=== PATIENT | male | born 1960 | race Caucasian/White ===

== ENCOUNTER 2016-11-13 19:36 | Inpatient (IN) | payer MEDICARE, OTHER ==
--- NOTE | ~2016-11-13 | EKG ---
PATIENT: BRITTNEY VU UNIT #: [id number] Ventricular Rate: 75 BPM Atrial Rate: 75 BPM P-R Interval: 178 ms QRS Duration: 94 ms Q-T Interval: 410 ms QTC Calculation(Bezet): 457 ms P [place]: 35 degrees Calculated R [place]: 17 degrees Calculated T [place]: -4 degrees Diagnosis Line: Normal sinus rhythm Diagnosis Line: Poor R wave progression questionable lead position Diagnosis Line: or body habitus Diagnosis Line: Borderline ECG Diagnosis Line: When compared with ECG of 08-FEB-2014 16:44, Diagnosis Line: Non-specific change in ST segment in Inferior Diagnosis Line: leads Diagnosis Line: Nonspecific T wave abnormality now evident in Diagnosis Line: Inferior leads Diagnosis Line: Confirmed by ALENA LOUIS MD ([id number]) on Diagnosis Line: 11/14/2016 9:14:12 PM INTERPRETING MD: JOSÉ MIGUEL
--- NOTE | ~2016-11-13 | CR72 ---
[facility] A Service of [facility] & [facility] RADIOLOGY TEXT RESULTS PATIENT: BRITTNEY VU LOCATION: [place] [address] : 56 UNIT #: [id number] AGE: [address]: Joe Munoz MD SEX: M ORDER DR: [id number] [facility] [address] [facility]. [place], [place] [address] [id number] I MR#: [id number] Acc #: [id number] NAME: BRITTNEY VU : 1960 SEX: M STUDY DATE/TIME: 11/24/2016 5:56 UNIT: [facility] ROOM: [facility] STUDY DESCRIPTION: CR Chest Single View Portable Attending Physician: Joe Munoz M.D. Ordering Physician: Kenny Santos M.D. Primary Care Physician: Josh Centeno M.D. MEDICAL IMAGING REPORT This report is preliminary unless electronic signature is present EXAM Portable chest one-view, 11/24/2016 COMPARISON 11/23/2016 CLINICAL HISTORY Respiratory failure. Symptoms for 9 days. FINDINGS Persistent low lung volumes and vascular congestion and left basilar opacity due to possibly effusion and/or atelectasis or infiltrate, all unchanged since 11/23. Right arm PICC line remains in place. There is no pneumothorax and again there has been no substantial worsening or improvement since exam of 11/23. Dictated by... Umesh Prado M.D. THIS IS AN ELECTRONICALLY VERIFIED REPORT Umesh Prado M.D. at 11/24/2016 3:51 PM ZULEMA/neris TD: 11/24/2016 10:54 JOB #: [id number] MEDICAL IMAGING REPORT Page 1 of 1 COPY
--- NOTE | ~2016-11-13 | CT16 ---
[facility] A Service of [facility] RADIOLOGY TEXT RESULTS PATIENT: BRITTNEY VU LOCATION: CICCU3 CICCU3- : 56 UNIT #: [id number] AGE: [address]: Joe Munoz MD SEX: M ORDER DR: [id number] [facility] [address] [facility]. [place], [place] [address] [id number] I MR#: [id number] Acc #: [id number] NAME: BRITTNEY VU. : 1960 SEX: M STUDY DATE/TIME: 11/14/2016 2:12 UNIT: [facility] ROOM: 26434 STUDY DESCRIPTION: CT Angio Chest for PE Attending Physician: Joe Munoz M.D. Ordering Physician: Adrienne Oconnor M.D. Primary Care Physician: Josh Centeno M.D. MEDICAL IMAGING REPORT This report is preliminary unless electronic signature is present EXAM CT chest with pulmonary embolus protocol. INDICATION Shortness of air for 1 1/2 months with weakness. TECHNIQUE Patient was given 100 mL of Isovue-370. This CT exam was performed with one or more of the following radiation dose reduction techniques: automatic exposure control, adjustment of mA and/or kV according to patient size, and iterative reconstruction. COMPARISON There is no comparison. FINDINGS The patient is very large and images are very grainy. The study is essentially nondiagnostic. There is opacification of the pulmonary arteries and I do not see any large central emboli. Lungs are clear and the aorta is normal in size and there is no obvious dissection. IMPRESSION 1. This exam is severely limited by the patient's large size which causes the images to be very grainy. I can only rule out very large central emboli and none are visible on this study. Smaller more distal emboli cannot be excluded. 2. The lungs are clear. Dictated by... [facility] A Service of [facility] RADIOLOGY TEXT RESULTS PATIENT: BRITTNEY VU LOCATION: CICCU3 CICCU3- : 56 UNIT #: [id number] AGE: [address]: Joe Munoz MD SEX: M ORDER DR: Augustus Whiteside M.D. THIS IS AN ELECTRONICALLY VERIFIED REPORT Augustus Whiteside M.D. at 11/14/2016 1:21 PM MERYL/brien TD: 11/14/2016 10:24 JOB #: [id number] MEDICAL IMAGING REPORT Page 1 of 1 COPY
--- NOTE | ~2016-11-13 | CR7 ---
[facility] A Service of [facility] & [facility] RADIOLOGY TEXT RESULTS PATIENT: BRITTNEY VU LOCATION: [address] : 56 UNIT #: [id number] AGE: [address]: Joe Munoz MD SEX: M ORDER DR: [id number] [facility] [address] [facility]. [place], [place] [address] [id number] I MR#: [id number] Acc #: [id number] NAME: BRITTNEY VU : 1960 SEX: M STUDY DATE/TIME: 11/15/2016 13:14 UNIT: [facility] ROOM: [facility] STUDY DESCRIPTION: CR Abdomen Single AP View Attending Physician: Joe Munoz M.D. Ordering Physician: Joe Munoz M.D. Primary Care Physician: Josh Centeno M.D. MEDICAL IMAGING REPORT This report is preliminary unless electronic signature is present EXAM Portable abdomen. HISTORY History supplied is Dobbhoff tube placement. FINDINGS Tip of the flexible feeding tube is within the stomach. There is consolidation at the left lung base and left pleural fluid. Dictated by... Rudi Miller M.D. THIS IS AN ELECTRONICALLY VERIFIED REPORT Rudi Miller M.D. at 11/16/2016 7:14 AM BRITTANI/adriano TD: 11/15/2016 14:24 JOB #: [id number] MEDICAL IMAGING REPORT Page 1 of 1 COPY
--- NOTE | ~2016-11-13 | CR72 ---
[facility] A Service of [facility] & [facility] & [facility] RADIOLOGY TEXT RESULTS PATIENT: BRITTNEY VU LOCATION: [address] : [birth year] UNIT #: [id number] AGE: [address]: Joe Munoz MD SEX: M ORDER DR: [id number] [facility] [address] [facility]. [place], [place] [address] [id number] I MR#: [id number] Acc #: [id number] NAME: BRITTNEY VU : 1960 SEX: M STUDY DATE/TIME: 11/22/2016 5:28 UNIT: [facility] ROOM: [facility] STUDY DESCRIPTION: CR Chest Single View Portable Attending Physician: Joe Munoz M.D. Ordering Physician: Kenny Santos M.D. Primary Care Physician: Josh Centeno M.D. MEDICAL IMAGING REPORT This report is preliminary unless electronic signature is present EXAM Portable chest, 11/22. COMPARISON 11/21. HISTORY Intubated, shortness of breath, follow up infiltrates. FINDINGS AP view is obtained. ET tube is in good position above the timothy. Nasoenteric tube in the stomach and a right-sided PICC line in the SVC. Heart size is enlarged. There is an increase in pulmonary edema since the last study. Continues to be focal consolidation at the left base. CONCLUSION Slight increase in pulmonary edema, otherwise no change. Dictated by... Rudi Miller M.D. THIS IS AN ELECTRONICALLY VERIFIED REPORT Rudi Miller M.D. at 11/23/2016 3:21 PM BRITTANI/nathaniel TD: 11/22/2016 10:20 JOB #: [id number] MEDICAL IMAGING REPORT Page 1 of 1 COPY
--- NOTE | ~2016-11-13 | FU ---
[facility] Nutrition Therapy DATE: 11/23/16 Patient: BRITTNEY VU Physician: ANA MARIA Address: [address] [facility] Room/Bed: [address], Zip: [place] [address] Admit Date: 11/14/16 Date of : 56 Height: 6 Weight: 497 225.6 NUTRITION MONITORING/FOLLOW-UP: Reason: Nutrition follow up Anthropometrics: Wt 11/23: 225.6 kg Labs: Na+ 146 Gluc 173 BUN 66 Ca++ 8.0 Alb 2.7 Accuchecks 159-172 GFR 55 Meds: Solu-medrol, bumex, pepcid (IV), NaCl, versed, vitamin B12, novolog I&O's: 1574/5692, last BM 11/23 Skin: No changes noted Edema: Generalized- BUE/ BLE/ trunk Estimated Nutrition Needs: Diet: Clear liquid Assessment: Chart reviewed, events noted. Pt remains in ICU, and was extubated yesterday. Pt still has a DHT; however, there are orders to d/c enteral nutrition if the pt passes his CHAIRLIFT OPERATOR eval. CHAIRLIFT OPERATOR just completed the evaluation, and recommended regular consistency foods and thin liquids. Orders in chart to advance diet per CHAIRLIFT OPERATOR recommendations. RD spoke with the pt at bedside. Pt reports that he has a good appetite, but states that he will not be eating a lot because he is having diarrhea. RD discussed the importance of adequate, balanced nutrient intake. RD briefly discussed consuming soluble fiber-rich foods to help with diarrhea, as well as heart healthy and consistent carbohydrate basics. Pt voiced understanding; however, he was not interested in further diet education at this time. Dx: 1) Inadequate oral intake RT clinical condition AEB ventilator dependence, NPO status- NO LONGER RELEVANT Morbid obesity RT likely poor lifestyle choices AEB BMI 67- ACTIVE New Dx: Potential for inadequate oral intake RT recent extubation, GI irregularity AEB no oral intake yet d/t recent diet advancement, pt reports that intkae will be minimal d/t diarrhea. Intervention: 1. Heart healthy/ consistent carbohydrate diet 2. HH/CC diet education [facility] Nutrition Therapy DATE: 11/23/16 Patient: BRITTNEY VU Physician: ANA MARIA Address: [address] Room/Bed: [facility] [place] [address], Zip: [place] [address] Admit Date: 11/14/16 Date of : 56 Height: 6 Weight: 497 225.6 Monitoring, Evaluation and Goals: 1. Enteral nutrition- MET/ NO LONGER RELEVANT 2. Weight; promote gradual weight loss- IN PROGRESS 3. Skin; prevent breakdown/ promote healing- IN PROGRESS 4. Improve labs; glucose, BUN- (NOT MET) Creat, GFR- (IMPROVED) NEW GOALS (IN ADDITION TO ABOVE) 1. Oral intake; tolerate >50% of meals 2. Improve labs; glucose, Na+, BUN, GFR Recommendations: 1. Recommend diet advancement per CHAIRLIFT OPERATOR recommendations + heart healthy/ consistent carbohydrate restriction due to the pt's PMH and obesity. 2. Provide additional HH/CC diet education at follow up as appropriate. 3. Encourage the pt to consume a source of soluble fiber at each meal to help with diarrhea. 4. Consider adding an antidiarrheal to the pt's medication regimen if PO intake does not relieve symtpoms. Status: Pt is at mild-moderate nutritional risk. RD will follow hospital course per protocol. Respectfully, MIAN FOWLER RD, LD [employer] [facility] cc: client file
--- NOTE | ~2016-11-13 | CR72 ---
[facility] A Service of [facility] RADIOLOGY TEXT RESULTS PATIENT: BRITTNEY VU LOCATION: [address] : 56 UNIT #: [id number] AGE: [address]: Joe Munoz MD SEX: M ORDER DR: [id number] [facility] [address] [facility]. [place], [place] [address] [id number] I MR#: [id number] Acc #: [id number] NAME: BRITTNEY VU : 1960 SEX: M STUDY DATE/TIME: 11/15/2016 8:10 UNIT: [facility] ROOM: [facility] STUDY DESCRIPTION: CR Chest Single View Portable Attending Physician: Joe Munoz M.D. Ordering Physician: Ed Jackson Rubi M.D. Primary Care Physician: Josh Centeno M.D. MEDICAL IMAGING REPORT This report is preliminary unless electronic signature is present EXAM Portable chest radiograph. INDICATION Respiratory failure today. FINDINGS Comparison is made to prior exam from yesterday. Endotracheal tube terminates above the level of the timothy. There is a right side PICC line which extends into the superior vena cava. Cardiomegaly is present. There does appear to be significant vascular congestion. There is probably at least a trace right pleural effusion and there may also be a small left pleural effusion as well. Dense consolidation is noted at the left lung base which could reflect either atelectasis or infiltrate. No pneumothorax is seen. Dictated by... Sue Centeno M.D. THIS IS AN ELECTRONICALLY VERIFIED REPORT Sue Centeno M.D. at 11/15/2016 11:19 AM AFF/tmw TD: 11/15/2016 09:15 JOB #: [id number] MEDICAL IMAGING REPORT Page 1 of 1 COPY
--- NOTE | ~2016-11-13 | DS ---
Unit #: [id number] #: [id number] Patient: BRITTNEY VU [id number] [address] [address] [id number] I MR#: [id number] NAME: BRITTNEY VU ROOM: 578 Age: 56 Sex: M Admission Date: 11/14/2016 : 1960 Discharge Date: 11/28/2016 Attending Physician: Linda Ramirez M.D. Primary Care Physician: Josh Centeno M.D. DISCHARGE SUMMARY HOSPITAL COURSE Please see transfer of care summary from 11/24/2016 for hospital stay. Essentially, over the past 72 hours the patient was maintained on telemetry floor, requiring anywhere from 8-12 liters O2 via Oxymizer. Pulmonary services have stated that his antibiotics can be discontinued after tomorrow. Solu-Medrol has been weaned off. Secondary to increased O2 requirements as well as ongoing IV Bumex and/or increased level of care, [place] services have evaluated the patient. The patient will be transferred to [facility] facility later this afternoon for ongoing care. Overall the patient's prognosis is guarded secondary to associated comorbid conditions as detailed above. DISCHARGE MEDICATIONS 1. Duo-Neb aerosol solution q.8 h. with q.2 p.r.n. 2. Tylenol 650 mg p.o. q.4 h. p.r.n. 3. Lovenox 40 mg subcutaneous daily. 4. Bumex 1 mg IV q.12 h. 5. NovoLog medium dose sliding scale with insulin, Accu-Cheks morning and evening. 6. Pepcid 20 mg IV q.12 h. 7. Vitamin B12 1000 mcg p.o. daily. 8. Sodium chloride nebulized solution b.i.d. 9. Nafcillin q.6 h. until 11/28/2016. DISCHARGE CONDITION Stable. DISPOSITION [facility] for ongoing care. Dictated by... Joe Munoz M.D. BRE/gordon TD: 11/28/2016 15:25 JOB #: [id number] Unit #: [id number] #: [id number] Patient: BRITTNEY VU DISCHARGE SUMMARY Page 1 of 1 X Joe Munoz MD DISCHARGE SUMMARY
--- NOTE | ~2016-11-13 | CR72 ---
[facility] A Service of [facility] & [facility] RADIOLOGY TEXT RESULTS PATIENT: BRITTNEY VU LOCATION: [address] : 56 UNIT #: [id number] AGE: [address]: Joe Munoz MD SEX: M ORDER DR: [id number] [facility] [address] [facility]. [place], [place] [address] [id number] I MR#: [id number] Acc #: [id number] NAME: BRITTNEY VU : 1960 SEX: M STUDY DATE/TIME: 11/14/2016 UNIT: [facility] ROOM: [facility] STUDY DESCRIPTION: CR Chest Single View Portable Attending Physician: Joe Munoz M.D. Ordering Physician: Moncho Traore M.D. Primary Care Physician: Josh Centeno M.D. MEDICAL IMAGING REPORT This report is preliminary unless electronic signature is present EXAM Chest portable 11/14/2016 1045 hours HISTORY Respiratory failure, intubation today. COMPARISON 11/13/2016 FINDINGS Single portable supine chest film demonstrates a new endotracheal tube with tip 2 cm above the timothy. There is stable cardiomegaly. There is pulmonary venous distension with increasing parenchymal change in the perihilar and basilar regions since yesterday's chest x-ray. Some of the findings may be related to the supine positioning and morbid obesity. Developing edema, however, cannot be excluded. IMPRESSION 1. New endotracheal tube tip is 2-3 cm above the timothy. 2. Persistent cardiomegaly. There is pulmonary venous distension with increasing perihilar and basilar changes since 11/13/2016. Some of this vascular distension could be due to the supine positioning. However, developing edema or pneumonia cannot be excluded. Dictated by... Anjali Pena M.D. THIS IS AN ELECTRONICALLY VERIFIED REPORT Anjali Pena M.D. at 11/14/2016 2:33 PM JENNA/fallon TD: 11/14/2016 13:15 [facility] A Service of [facility] & [facility] RADIOLOGY TEXT RESULTS PATIENT: BRITTNEY VU LOCATION: [address] : 56 UNIT #: [id number] AGE: [address]: Joe Munoz MD SEX: M ORDER DR: JOB #: [id number] MEDICAL IMAGING REPORT Page 1 of 1 COPY
--- NOTE | ~2016-11-13 | CR71 ---
[facility] A Service of [facility] & [facility] RADIOLOGY TEXT RESULTS PATIENT: BRITTNEY VU LOCATION: [address]23 : 56 UNIT #: [id number] AGE: [address]: Joe Munoz MD SEX: M ORDER DR: [id number] [facility] [address] [facility]. [place], [place] [address] [id number] I MR#: [id number] Acc #: [id number] NAME: BRITTNEY VU : 1960 SEX: M STUDY DATE/TIME: 11/14/2016 14:47 UNIT: [facility] ROOM: [facility] STUDY DESCRIPTION: CR Chest Single View Attending Physician: Joe Munoz M.D. Ordering Physician: Joe Munoz M.D. Primary Care Physician: Josh Centeno M.D. MEDICAL IMAGING REPORT This report is preliminary unless electronic signature is present EXAM Chest x-ray, 11/14. INDICATION PICC line placement. FINDINGS AP portable chest is compared with earlier today. The exam is degraded by patient body habitus and portable technique. However, the tip of a right arm-approach PICC is in the SVC. ET tube mid trachea. The heart is enlarged and the mediastinum is widened. There is continued infiltrate in the lungs with vascular congestion. IMPRESSION Limited exam due to obesity and portable technique. Right arm PICC in the SVC. ET tube mid trachea. Dictated by... Jesse Alcantara Jr., M.D. THIS IS AN ELECTRONICALLY VERIFIED REPORT Jesse Alcantara Jr., M.D. at 11/14/2016 5:00 PM DARIAN/brien TD: 11/14/2016 16:43 JOB #: [id number] MEDICAL IMAGING REPORT Page 1 of 1 COPY
--- NOTE | ~2016-11-13 | CR72 ---
[facility] A Service of [facility] RADIOLOGY TEXT RESULTS PATIENT: BRITTNEY VU LOCATION: [place] [address] : 56 UNIT #: [id number] AGE: [address]: Joe Munoz MD SEX: M ORDER DR: [id number] [facility] [address] [place], [place] [address] [id number] I MR#: [id number] Acc #: [id number] NAME: BRITTNEY VU. : 1960 SEX: M STUDY DATE/TIME: 11/21/2016 6:04 UNIT: [facility] ROOM: [facility] STUDY DESCRIPTION: CR Chest Single View Portable Attending Physician: Joe Munoz M.D. Ordering Physician: Delio Kaye M.D. Primary Care Physician: Josh Centeno M.D. MEDICAL IMAGING REPORT This report is preliminary unless electronic signature is present EXAM Portable chest 1 view 11/21/2016 at 0604 COMPARISON 11/20/2016 HISTORY Respiratory failure, short of air for 6 days FINDINGS ET tube present, tip about 3-4 cm above the timothy. Low lung volumes and probable left lower lobe collapse. No change since 11/20, with the exception of slight improvement in right lung aeration. No pneumothorax. Dictated by... Umesh Prado M.D. THIS IS AN ELECTRONICALLY VERIFIED REPORT Umesh Prado M.D. at 11/21/2016 3:56 PM TEV/to TD: 11/21/2016 13:25 JOB #: [id number] MEDICAL IMAGING REPORT Page 1 of 1 COPY
--- NOTE | ~2016-11-13 | CR72 ---
[facility] A Service of [facility] & [facility] RADIOLOGY TEXT RESULTS PATIENT: BRITTNEY VU LOCATION: [place] [address] : 56 UNIT #: [id number] AGE: [address]: Joe Munoz MD SEX: M ORDER DR: [id number] [facility] [address] [facility]. [place], [place] [address] [id number] I MR#: [id number] Acc #: [id number] NAME: BRITTNEY VU. : 1960 SEX: M STUDY DATE/TIME: 11/23/2016 03:17 UNIT: [facility] ROOM: [facility] STUDY DESCRIPTION: CR Chest Single View Portable Attending Physician: Joe Munoz M.D. Ordering Physician: Kenny Santos M.D. Primary Care Physician: Josh Centeno M.D. MEDICAL IMAGING REPORT This report is preliminary unless electronic signature is present EXAM Portable chest, 11/23, 03:17. INDICATIONS Shortness of air, respiratory failure. Pneumonia. FINDINGS AP portable views of the chest compared with 11/22/2016. Patient has been extubated. The exam remains degraded by body habitus and portable technique. Diffuse bilateral infiltrates are again seen, right greater than left. There are stable to minimally worsened. No pneumothorax. Dictated by... Jesse Alcantara Jr., M.D. THIS IS AN ELECTRONICALLY VERIFIED REPORT Jesse Alcantara Jr., M.D. at 11/23/2016 9:26 PM DARIAN/nathaniel TD: 11/23/2016 07:12 JOB #: [id number] MEDICAL IMAGING REPORT Page 1 of 1 COPY
--- NOTE | ~2016-11-13 | CR72 ---
[facility] A Service of [facility] & [facility] RADIOLOGY TEXT RESULTS PATIENT: BRITTNEY VU [facility] 56 UNIT #: [id number] AGE: [address]: Joe Munoz MD SEX: M ORDER DR: [id number] [facility] [address] [facility] [place], [place] [address] [id number] I MR#: [id number] Acc #: [id number] NAME: BRITTNEY VU. : 1960 SEX: M STUDY DATE/TIME: 11/13/2016 21:07 UNIT: [facility] ROOM: 59361 STUDY DESCRIPTION: CR Chest Single View Portable Attending Physician: Joe Munoz M.D. Ordering Physician: Adrienne Oconnor M.D. Primary Care Physician: Josh Centeno M.D. MEDICAL IMAGING REPORT This report is preliminary unless electronic signature is present EXAM Portable chest 11/13/2016 INDICATION Chronic shortness of air for 1 month. COMPARISON None. FINDINGS An AP view of the chest was obtained. The heart size and vascularity are normal. The lungs are clear. This exam is limited by patient's size. The bones are unremarkable. IMPRESSION No active disease is visible. Dictated by... Augustus Whiteside M.D. THIS IS AN ELECTRONICALLY VERIFIED REPORT Augustus Whiteside M.D. at 11/14/2016 1:22 PM MERYL/michael TD: 11/14/2016 09:14 JOB #: [id number] MEDICAL IMAGING REPORT Page 1 of 1 COPY
--- NOTE | ~2016-11-13 | CR72 ---
[facility] A Service of [facility] & [facility] RADIOLOGY TEXT RESULTS PATIENT: BRITTNEY VU LOCATION: [place] [address] : 56 UNIT #: [id number] AGE: [address]: Joe Munoz MD SEX: M ORDER DR: [id number] [facility] [address] [facility]. [place], [place] [address] [id number] I MR#: [id number] Acc #: [id number] NAME: BRITTNEY VU : 1960 SEX: M STUDY DATE/TIME: 11/17/2016 5:28 UNIT: [facility] ROOM: [facility] STUDY DESCRIPTION: CR Chest Single View Portable Attending Physician: Joe Munoz M.D. Ordering Physician: Delio Kaye M.D. Primary Care Physician: Josh Centeno M.D. MEDICAL IMAGING REPORT This report is preliminary unless electronic signature is present EXAM Portable chest HISTORY Follow up infiltrates and endotracheal tube. FINDINGS Today's portable view of the chest is compared with yesterday's study. Marked cardiomegaly with diffuse bilateral infiltrates are stable and the endotracheal tube is in good position. Dictated by... Augustus Whiteside M.D. THIS IS AN ELECTRONICALLY VERIFIED REPORT Augustus Whiteside M.D. at 11/17/2016 1:55 PM MERYL/arnaldo TD: 11/17/2016 06:33 JOB #: [id number] MEDICAL IMAGING REPORT Page 1 of 1 COPY
--- NOTE | ~2016-11-13 | TOC ---
Unit #: [id number] #: [id number] Patient: BRITTNEY VU [id number] [address] [place], [place] [address] [id number] MR#: [id number] NAME: BRITTNEY VU ROOM: 578 Age: 56 Sex: M Admission Date: 11/14/2016 : 1960 Attending Physician: Joe Munoz M.D. Primary Care Physician: Josh Centeno M.D. TRANSFER OF CARE SUMMARY REASON FOR ADMISSION Acute hypoxic respiratory failure. HISTORY OF PRESENT ILLNESS/HOSPITAL COURSE THUS FAR The patient is a 56-year-old male with underlying history of hypertension, diabetes, severe morbid obesity who was admitted secondary to acute hypoxic respiratory failure. He stated that he had decreased O2 saturations on his home oxygen meter. He had increased shortness of breath while at home. He presented to the emergency department with an O2 saturation of 96% on 4 liters. His initial chest x-ray was negative. Through initial part of hospital stay the patient acutely decompensated; therefore, we placed consultation to pulmonary service. Dr. Kaye and associates saw and evaluated the patient. Eventually the patient had to be placed in ICU and subsequently he was intubated secondary to worsening respiratory status. It was also noted initially the patient had acute kidney injury with his creatinine elevated at 1.7. He also had decreased urine output. This prompted a consultation with nephrology service, Dr. Leblanc, who has continued to follow the patient through his hospital course thus far. Today, the patient's creatinine currently stands at 1.4, and Dr. Leblanc continues to evaluate the patient. From a respiratory standpoint, Dr. Kaye has extubated Mr. Vu to BiPAP, and now he is on O2. He will be transferred to telemetry floor later this afternoon. His overall prognosis is guarded at best secondary to severe morbid obesity. He has waxed and waned with hypercapnia, as well as hypoxia. He has stated that he no longer wishes to be intubated, however. At this point in time he appears clinically stable; thus, we will transfer him to telemetry. PT/OT will evaluate in the a.m., and consideration may be given to rehab at time of discharge. In regard to his overall decision making, he has stated that he no longer wishes to be reintubated, and he has no family members who are present or have inquired about his well being. He states that essentially he is alone. He will remain a full code at this point in time. Further discussions may be held if he acutely decompensates moving forward. Also noted, his blood cultures this hospital admission have returned and shown no acute bacterial growth. CURRENT CLINICAL DIAGNOSES (as of 11/24/2016) 1. Acute hypoxic/hypercapnic respiratory failure, now improving. Unit #: [id number] #: [id number] Patient: BRITTNEY VU 2. Community-acquired pneumonia. 3. Severe morbid obesity. 4. Acute kidney injury. 5. Diabetes. 6. Chronic immobility syndrome. Dictated by... Joe Munoz M.D. BRE/blas TD: 11/25/2016 12:10 JOB #: [id number] TRANSFER OF CARE SUMMARY Page 1 of 1 X Joe Munoz MD X TRANSFER OF CARE SUMMARY
--- NOTE | ~2016-11-13 | FU ---
[facility] Nutrition Therapy DATE: 11/20/16 Patient: BRITTNEY Ramos HORACE Physician: ANA MARIA Address: [address] [facility] Room/Bed: [address], Zip: [place] [address] Admit Date: 11/14/16 Date of : 56 Height: 6 Weight: 507 230 NUTRITION MONITORING/FOLLOW-UP: Reason: Enteral nutrition follow up Anthropometrics: Ht: 6'0" Adm wt: 228 kg BMI: 67 IBW: 80.9 kg Labs: Cl- 96 gluc 139 BUN 52 Creat 2.6 Ca++ 7.8 Alb 2.3 Phos 6.1 (11/19) Accuchecks 129 GFR 26.0 Meds: Propofol @ 47.5 mL/hr, solu-medrol, bumex, pepcid (IV), NaCl, versed, vitamin B12, novolog I&O's: 2123/2775, last BM 11/19 Skin: no changes noted Edema: Generalized- BUE/ BLE Estimated Nutrition Needs: 8164-2623 kcals (22-25 kcals/kg IBW) 144-162 grams protein (1.8-2.0 grams/kg IBW) Assessment: Chart reviewed, events noted. Pt remains intubated and sedated in the ICU. Propofol is providing an additional 1254 kcals from lipids at this time. Pt is receiving enteral nutrition with Vital HP @ 20 mL/hr + 60 mL Prostat TID (6 total Prostat). Please note, combined kcals from propofol and enteral nutrition are slightly exceeding the pt's estimated kcal needs (2334 total kcals at this time). Per pump history, the pt has received 97% enteral nutrition goal volume over the past 24-48 hrs. RN reports that a wean trial will likely be attempted tomorrow. Please see recommendations below. Dx: 1) Inadequate carey intake RT clinical condition AEB NPO status, ventilator dependence- ACTIVE 2) Morbid obesity RT poor lifestyle choices AEB BMI 67- ACTIVE Intervention: 1. Continue current enteral nutrition regimen Monitoring, Evaluation and Goals: 1. Enteral nutrition; tolerate/ provide >80% goal volume- MET/ IN PROGRESS [facility] Nutrition Therapy DATE: 11/20/16 Patient: BRITTNEY VU Physician: ANA MARIA Address: [address] Room/Bed: [address], Zip: [place] [address] Admit Date: 11/14/16 Date of : 56 Height: 6 Weight: 507 230 2. Weight; promote gradual weight loss- IN PROGRESS 3. Skin; prevent breakdown, promote healing- IN PROGRESS 4. Improve labs; glucose (NOT MET) NEW GOALS/ MONITOR (IN ADDITION TO ABOVE GOALS IN PROGRESS): 1. Improve labs; BUN, creat, Phos, GFR, glucose 2. Enteral regimen based on kcals from Propofol Recommendations: 1. Continue the current enteral regimen with Vital HP @ 20 mL/hr + 60 mL (two packets) Prostat TID (six total) to provide: 2334 kcals/ 132 gram protein/ 403 mL free H20 2. Once propofol is discontinued, D/C Prostat and increase Vital HP by 10 mL q 6 hrs as tolerated to goal of 75 mL/hr. This will provide: 1800 kcals/ 158 grams protein/ 1512 mL free H20 3. If the pt is extubated, recommend JIGMAKER evaluation. Advance diet per JIGMAKER recommendations + heart healthy/ consistent carbohydrate diet restriction. Status: Pt is at moderate nutritional risk. RD will continue to follow hospital course. Respectfully, MIAN FOWLER RD, LD Food and Nutritional Services [facility] cc: client file
--- NOTE | ~2016-11-13 | HP ---
Unit #: [id number] #: [id number] Patient: BRITTNEY VU [id number] [address] [place], [place] [address] [id number] I MR#: [id number] NAME: BRITTNEY VU. ROOM: 22697 Age: 56 Sex: M Admission Date: 11/14/2016 : 1960 Attending Physician: Hallie Rajput M.D. Primary Care Physician: Josh Centeno M.D. HISTORY AND PHYSICAL CHIEF COMPLAINT Respiratory failure. HISTORY This pleasant 56-year-old male with hypertension, AODM, morbid obesity, is admitted for respiratory failure. The patient states that he was well until about two and a half months ago when he began to experience generalized weakness, difficulty with coordination/shakiness. Over the past month, notes decreased O2 sats on his home O2 detector. Was seen by Dr. Centeno and was given Medrol Dosepak for allergies with some improvement. However, recently has been more short of breath and gasping with worsening pedal edema. Denies pain with the above. He presented to this emergency department late last evening with an O2 saturation of 96% on 4 L. He does seem to have some mild asterixis on exam. Chest x-ray is negative. The patient denies previous history of obstructive sleep apnea. However, I do not believe he has ever been tested for such. PAST MEDICAL HISTORY 1. AODM. 2. Hypertension. 3. Gout. 4. DJD with right lumbar radiculopathy. 5. Overactive bladder. 6. Left arm surgery. 7. Oral surgery. 8. Right cataract extraction. 9. Kidney stone removal. ALLERGIES None. HOME MEDICATIONS 1. Lasix increased to 40 mg b.i.d. 2. Losartan 50 mg q. a.m. 3. Metformin 500 mg, one half tablet three times a week. 4. Oxybutynin 5 mg daily. 5. Extra strength Tylenol. 6. Vitamin B12 1000 mcg as directed. FAMILY HISTORY Congestive heart failure. Unit #: [id number] #: [id number] Patient: BRITTNEY VU SOCIAL HISTORY The patient lives alone. He is a lifelong nonsmoker, does not drink alcohol. REVIEW OF SYSTEMS Notable for shakiness, weakness, shortness of breath with low O2 sats, pedal edema, hypertension, gout, DJD, overactive bladder, AODM, above mentioned surgeries. All other systems were reviewed and are otherwise negative. PHYSICAL EXAMINATION GENERAL APPEARANCE: Pleasant, morbidly obese 56-year-old male, currently in no acute distress. VITAL SIGNS: Temperature 97.3, pulse 67, respirations 20, blood pressure 127/51, O2 saturation is 96% on 4 L of oxygen. HEENT: Eyes PERRLA. Extraocular muscles are intact. Pharynx - somewhat dry mucosal membranes. NECK: Supple without adenopathy or thyromegaly. CHEST: Clear. CARDIAC: Normal S1 and S2 without S3, S4 or murmur. ABDOMEN: Bowel sounds are present. There is some edema of the lower abdomen. No abdominal pannus. Nontender. No definite masses or definite hepatosplenomegaly. EXTREMITIES: Mild edema. Pedal pulses are present. No ulcers on the legs. SKIN: Examination reveals intertrigo of thighs bilaterally into the lower abdomen. DIAGNOSTIC STUDIES LABORATORY: Hematocrit 45.3, white blood count is 12.8. Normal platelet count. INR is 1. SMA-12 - glucose 192, calcium 8, alkaline phos. 94. Troponin is negative. BNP not received. Urinalysis - 1+ leukocyte esterase, 1+ protein without significant white or red cells. CARDIOVASCULAR: EKG - normal sinus rhythm, rate 75. ASSESSMENT 1. Hypoxic respiratory failure, possibly related to obesity hyperventilation syndrome, rule out PE, rule out congestive heart failure: I suspect patient likely has obstructive sleep apnea as well. Given complaints of shakiness, will need to rule out hypercapnia. 2. Morbid obesity. 3. Adult onset diabetes mellitus. 4. Hypertension. 5. Overactive bladder. PLANS 1. CTA of the chest. 2. Obtain ABG. 3. Likely pulmonary consultation depending on above. 4. Supplemental oxygen. 5. Hold Glucophage with sliding scale insulin. Unit #: [id number] #: [id number] Patient: BRITTNEY VU 6. Pole Peeling Machine Operator to instruct in weight loss diet. 7. TSH. 8. DVT prophylaxis. 9. BNP. Dictated by Hallie Rajput M.D. XIOMARA/alfonso TD: 11/14/2016 05:22 JOB #: [id number] HISTORY AND PHYSICAL Page 1 of 1 X Hallie Rajput MD HISTORY AND PHYSICAL
--- NOTE | ~2016-11-13 | A ---
[facility] Nutrition Therapy DATE: 11/15/16 Patient: BRITTNEY VU Physician: ANA MARIA Address: [address] [facility] Room/Bed: [address], Zip: [place] [address] Admit Date: 11/14/16 Date of : 56 Height: 6 Weight: 499 226.5 NUTRITIONAL ASSESSMENT: REASON: NPO in ICU Dx: 56 y/o male admitted for respiratory failure PMH: asthma, COPD, bronchitis, HTN, DM, kidney stones, arthritis Anthropometrics: 6'0", 501# (228 kg), BMI 67 Labs: Cl- 97, Glu 132, Ca++ 7.8, Alb 3.0 Meds: propofol (41 ml/hr, being turned down by RN), lovenox, protonix iv, versed, levaquin I/O & Bowel function: 1285/2900, last BM unknown Skin Integrity: redness- coccyx, abdomen, groin; small abrasions- abdomen folds; open area-perineal Edema: generalized 1+ BLE 2+ Estimated Nutrition Needs: 1735-6703 kcal (22-25 kcals/kg IBW) 145-162 g pro (1.8-2.0 grams/kg IBW) fluids consistent with kcals or per MD Assessment: Chart reviewed, events noted. Pt is a 56 y/o male admitted for respiratory failure. Pt is currently sedated on the vent. At time of RD accounting intern visit, pt was receiving propofol at 41 ml/hr, which provides an additional 1082 kcals from lipids. Per RN report, he will likely be decreasing the propofol rate today. RD discussed enteral regimen with MD, and MD ordered enteral nutrition per RD recs. Please see recommendations. RD will remain available. Dx: 1) Inadequate oral intake r/t clinical condition AEB NPO status, pt on ventilator. 2) Morbid obesity r/t poor lifestyle choices AEB BMI 67. Intervention: 1. Enteral nutrition Monitoring, Evaluation and Goals: 1. Enteral Nutrition; once enteral nutrition initiated, tolerate/provide >80% goal volume [facility] Nutrition Therapy DATE: 11/15/16 Patient: BRITTNEY VU Physician: ANA MARIA Address: [address] [facility] Room/Bed: [address] State, Zip: [place] [address] Admit Date: 11/14/16 Date of : 56 Height: 6 Weight: 499 226.5 x 24 hrs 2. Weight; promote gradual weight loss towards a healthy BMI (19.0-25.0) 3. Skin; prevent breakdown, promote healing 4. Improve labs; glucose, A1C Recommendations: 1. While the pt is receiving Propofol at 41 mL/hr, begin enteral nutrition support of Vital HP @ 20 mL/hr x 24 hours + 60 mL Prostat (2 packets) TID (for total of 6 packets daily). -This will provide 2162 kcals, 132 g pro, 403 mL H20 -Free H20 flushes per MD 2. When Propofol is D/C'd, continue enteral nutrition support of Vital HP @ 20 mL/hr and increase by 10 mL q 6 hours as tolerated to goal rate of 75 mL/hr x 24 hours. -This will provide 1800 kcals, 158 g pro, 1512 mL H20 -Free H20 flushes per MD 3. Obtain updated HgbA1c. RD will f/u per protocol as pt is at mod/severe nutritional risk Respectfully, BALBIR HARRIS, international travel consultant Edna Alcantar RD, LD Food and Nutritional Services [facility] cc: client file
--- NOTE | ~2016-11-13 | CO ---
Unit #: [id number] #: [id number] Patient: BRITTNEY VU [id number] [facility]. [address] [place], [place] [address] [id number] Ruslan MR#: [id number] NAME: BRITTNEY VU ROOM: [facility] Age: 56 Sex: M Admission Date: 11/14/2016 : 1960 Attending Physician: Joe Munoz M.D. Primary Care Physician: Josh Centeno M.D. Consultation Date: 11/18/2016 CONSULTATION REPORT REASON FOR CONSULTATION Renal failure. Thank you very much for asking me to see this patient in consultation. HISTORY OF PRESENT ILLNESS Mr. Vu is a 56-year-old male, who presented to the hospital here on 11/14/2016 with increasing shortness of breath, weakness, decreased O2 saturation. Subsequently, he was intubated and remains on the vent. The patient was noted over the last 12 to 18 hours to have decreased urine output. Because of this, I was asked to see the patient and reviewing of the records 4 days ago, the patient had a creatinine of 1.0, jumped up to 1.8 and 1.7 and now down to 1.6, but again significant decreased urine output. The patient was given an L of fluid overnight and then started on normal saline 125 mL an hour. The patient currently has decreased responsiveness, sedated on the vent. The patient was noted on 11/13/[address] angiogram of the chest for PE which was negative, had been also taking on vancomycin as well with a level of 33 on 11/15/2016. PAST MEDICAL HISTORY History of hypertension, history of diabetes mellitus, history of obesity, history of GIST disease, history of gout, history of nephrolithiasis. MEDICATIONS His medicines currently include vancomycin, azithromycin, Rocephin, Lovenox, Protonix, losartan, although that dose was held today. ALLERGIES No known drug allergies. SOCIAL HISTORY He lives alone. No smoking. No alcohol. REVIEW OF SYSTEMS Really unable to obtain except for what is in the HPI. FAMILY HISTORY Unable to obtain. PHYSICAL EXAMINATION GENERAL: He has decreased response on vent, sedated. VITAL SIGNS: T-max 98.2, pulse 57 to 90, blood pressure 91 to 110 over 40s to 50s. He has had 4013 in and 0 out, but again over the last few Unit #: [id number] #: [id number] Patient: BRITTNEY VU hours his urine output has dwindled very low. Looking at his in's and out's if recorded correctly, he has had about 3 L more in than out. HEENT: Pupils are equal, round, and reactive to light. He has a Dobbhoff tube in place nasally as orally intubated. NECK: Supple. No adenopathy. CARDIAC: He is without a rub. No S3 or S4. LUNGS: Have bilateral rhonchi. ABDOMEN: Obese. Bowel sounds positive. Nontender, again very large. He appears to have some body edema and some thigh edema and some mild lower extremity swelling. : Hemphill catheter is in place. SKIN: No acute rashes. NEUROLOGIC: Again sedated. DIAGNOSTIC STUDIES LABORATORY RESULTS: Today shows sodium of 135, potassium 4.1, chloride is 96, bicarb is 32, BUN and creatinine of 32 and 1.6, glucose of 138, calcium 7.6, albumin is 2.3. Hemoglobin 12.2 with a white count of 10,000, platelets 226,000. ABGs showed a pH of 7.334, pCO2 of 65, pO2 of 119 on 50%. His blood cultures were negative. Initially his BNP on 11/15/2016 was only 82. His UA shows specific gravity of 1.02, 1+ protein, negative rbc's, 1+ bacteria. Culture was negative. IMAGING STUDIES: Chest x-ray today looked large left effusion greater than right, possible bilateral infiltrates versus heart failure which is worse than his admission chest x-ray. ASSESSMENT AND PLAN 1. Acute kidney injury. This gentleman has decreased urine output with increased creatinine, although his creatinine is better some today than what it was. It peaked at 1.8. His urine output certainly has significantly decreased. I am unsure the exact volume status, he is a very large man, his input has been greater than his output, but he had a very low BNP. He has several reasons to have acute renal insufficiency including contrast dye versus vancomycin versus hypotension versus combination of all. His blood pressure was low and he did respond to IV fluids the overnight. For now, we will keep him on his IV fluids and normal saline at 125. I am going to go ahead and give him one dose of Bumex to see if we can get his kidneys kick started, but if his renal function does not improve or his output drops off with fluid challenge, then we may need to reverse course and give him higher dose diuretics. We will go ahead and check UA culture and sensitivity, urine sodium, and urine eosinophils. Repeat random urine protein and creatinine ratio. We will hold his vancomycin for now. Await for Pulmonary to determine what other agent they would like to use for pulmonary coverage. We will change his Protonix to Pepcid due to the risk of renal failure. Stop his losartan. Check portable renal ultrasound and we will follow. We will check CPK, troponin, BNP, CMP in a.m. 2. Respiratory failure and pneumonia versus heart failure versus other. 3. Diabetes mellitus. Dictated by.Lance Rothman/fahad TD: 11/19/2016 06:50 Unit #: [id number] #: [id number] Patient: BRITTNEY VU JOB #: [id number] CONSULTATION REPORT Page 1 of 1 X Dontrell Leblanc MD X CONSULTATION REPORT
--- NOTE | ~2016-11-13 | CR71 ---
[facility] A Service of [facility] RADIOLOGY TEXT RESULTS PATIENT: BRITTNEY VU LOCATION: [facility] : 56 UNIT #: [id number] AGE: [address]: Joe Munoz MD SEX: M ORDER DR: [id number] [facility] [address] [facility] [place] [facility]. [place], [place] [address] [id number] I MR#: [id number] Acc #: [id number] NAME: BRITTNEY VU : 1960 SEX: M STUDY DATE/TIME: 11/15/2016 13:06 UNIT: [facility] ROOM: [facility] STUDY DESCRIPTION: CR Chest Single View Attending Physician: Joe Munoz M.D. Ordering Physician: Joe Munoz M.D. Primary Care Physician: Josh Centeno M.D. MEDICAL IMAGING REPORT This report is preliminary unless electronic signature is present EXAM Portable chest x-ray, 11/15/2016. HISTORY Dobbhoff tube placement. TECHNIQUE AP radiograph of the chest is presented. COMPARISON Chest radiograph 11/15/2016 at 0810 hours. FINDINGS Endotracheal tube unchanged. Flexible feeding tube extends to the level of lower thorax. It terminates either in the most distal esophagus or the most proximal stomach. Lung volumes are low. Stable cardiac enlargement. Stable vascular congestion. Extensive airspace disease extending from the central lung zones toward the periphery bilaterally and symmetrically. This likely reflects either cardiogenic or noncardiogenic pulmonary edema. Severe bilateral pneumonia might be considered. Probable small left pleural effusion. No pneumothorax. An abdominal radiograph obtained several minutes after this chest radiograph shows advancement of the enteric tube into the mid stomach. See abdominal radiograph dictation for full details. Dictated by... Rudi Post M.D. THIS IS AN ELECTRONICALLY VERIFIED REPORT Rudi Post M.D. at 11/16/2016 6:12 PM [facility] A Service of [facility] RADIOLOGY TEXT RESULTS PATIENT: BRITTNEY VU LOCATION: [facility] : 56 UNIT #: [id number] AGE: [address]: Joe Munoz MD SEX: M ORDER DR: Jacinda TD: 11/15/2016 14:26 JOB #: [id number] MEDICAL IMAGING REPORT Page 1 of 1 COPY
--- NOTE | ~2016-11-13 | OR ---
Unit #: [id number] #: [id number] Patient: BRITTNEY VU [id number] [address] [address] [id number] I MR#: [id number] NAME: BRITTNEY VU ROOM: [facility] Date of Procedure: 11/17/2016 Admission Date: 11/14/2016 Surgeon: Delio Kaye M.D. : 1960 Attending Physician: Joe Munoz M.D. Primary Care Physician: Josh Centeno M.D. OPERATIVE REPORT PROCEDURE PERFORMED Flexible fiberoptic bronchoscopy. INDICATIONS FOR PROCEDURE Mucus plugs. FINDINGS Significant biofilm with the ET tube, mucus was encountered right greater than left, and mucus plugs were removed. Marked mucosal erythema, but no endobronchial tumor noted. SEDATION Ventilator sedation. COMPLICATIONS Zero. CONDITION AFTER PROCEDURE Stable. DESCRIPTION OF PROCEDURE The patient was in the intensive care unit on the ventilator #8 ET tube. Sedated with his ventilator sedation on propofol. Anesthetized with 2% lidocaine down his ET tube. Bronchoscope was introduced without difficulty. There was great amount of biofilm in the ET tube. Airways were anesthetized. There was significant amount of mucus right greater than left and mucus plugs were removed. Marked mucosal erythema, but no tumor was identified. No biopsies were performed. The bronchoscope was removed intermittently to allow adequate ventilation. Multiple attempts were made at clearing the biofilm and the mucus plugs. At the end of the procedure, mucus plugs were removed and most of the biofilm was removed as well. The patient was in stable condition postprocedure. Specimens will be sent for culture, AFB, fungus, etc. Dictated by... Delio Kaye M.D. JEAN PIERRE/modl TD: 11/17/2016 23:50 Unit #: [id number] #: [id number] Patient: BRITTNEY VU JOB #: [id number] OPERATIVE REPORT Page 1 of 1 X Delio Kaye MD PROCEDURE OPERATIVE NOTE
--- NOTE | ~2016-11-13 | CR72 ---
[facility] A Service of [facility] RADIOLOGY TEXT RESULTS PATIENT: BRITTNEY VU LOCATION: [address] : [birth year] UNIT #: [id number] AGE: [address]: Joe Munoz MD SEX: M ORDER DR: [id number] [facility] [address] [facility]. [place], [place] [address] [id number] MR#: [id number] Acc #: [id number] NAME: BRITTNEY VU : 1960 SEX: M STUDY DATE/TIME: 11/16/2016 5:25 UNIT: [facility] ROOM: [facility] STUDY DESCRIPTION: CR Chest Single View Portable Attending Physician: Joe Munoz M.D. Ordering Physician: Delio Kaye M.D. Primary Care Physician: Josh Centeno M.D. MEDICAL IMAGING REPORT This report is preliminary unless electronic signature is present EXAM Portable chest INDICATION Follow up support lines and tubes. COMPARISON 11/15/2016. FINDINGS The endotracheal tube is stable. A right PICC line is in place. NG tube projects over the stomach. Stable volume loss in the left lung. The increasing density in the left base may be worsening atelectasis or consolidation. Heart size stable. IMPRESSION Increasing density in the left base may reflect worsening atelectasis or consolidation. Dictated by... Jairon Lundberg M.D. THIS IS AN ELECTRONICALLY VERIFIED REPORT Jairon Lundberg M.D. at 11/16/2016 7:04 AM SHELDON/arnaldo TD: 11/16/2016 06:55 JOB #: [id number] MEDICAL IMAGING REPORT Page 1 of 1 COPY
--- NOTE | ~2016-11-13 | CR72 ---
[facility] A Service of [facility] RADIOLOGY TEXT RESULTS PATIENT: BRITTNEY VU LOCATION: [address] : 56 UNIT #: [id number] AGE: [address]: Joe Munoz MD SEX: M ORDER DR: [id number] [facility] [address] [facility]. [place], [place] [address] [id number] MR#: [id number] Acc #: [id number] NAME: BRITTNEY VU. : 1960 SEX: M STUDY DATE/TIME: 11/20/2016 5:23 UNIT: [facility] ROOM: [facility] STUDY DESCRIPTION: CR Chest Single View Portable Attending Physician: Joe Munoz M.D. Ordering Physician: Kenny Santos M.D. Primary Care Physician: Josh Centeno M.D. MEDICAL IMAGING REPORT This report is preliminary unless electronic signature is present EXAM AP portable chest 11/20/2016 at 05.23. HISTORY 56-year-old male with shortness breath, respiratory failure, pneumonia. Symptoms began 5 days ago. Additional history of chronic shortness of breath, hypertension. COMPARISON AP portable chest 11/18/2016. FINDINGS Study is limited secondary to underpenetration related to patient's large body habitus. The right costophrenic angle is not completely included in the imaging field of view. Dense opacity is present in the left [id number] lung zone thought to represent combination of pleural fluid and atelectasis/pneumonia. Ill-defined interstitial and alveolar infiltrates are scattered throughout both lungs. The degree of presumed fluid within the minor fissure of the right lung appears slightly decreased. Stable moderate generalized cardiomediastinal enlargement. ET tube remains in the thoracic trachea. Dobbhoff tube extends below the level of the diaphragm with tip not occluded field of view. The right arm approach PICC extends to the SVC. No pneumothorax is seen. IMPRESSION 1. Diffuse bilateral infiltrates with more dense consolidation/atelectasis and small to moderate left pleural effusion being unchanged. 2. Right pleural effusion may be slightly diminished with decreased fluid in the vicinity of the minor fissure. 3. The supporting lines and tubes appear stable. Dictated by... [facility] A Service of [facility] RADIOLOGY TEXT RESULTS PATIENT: BRITTNEY VU [address] : 56 UNIT #: [id number] AGE: [address]: Joe Munoz MD SEX: M ORDER DR: Gilma Jang M.D. THIS IS AN ELECTRONICALLY VERIFIED REPORT Gilma Jang M.D. at 11/21/2016 2:00 PM JULIETA/gordon TD: 11/20/2016 11:10 JOB #: [id number] MEDICAL IMAGING REPORT Page 1 of 1 COPY
--- NOTE | ~2016-11-13 | CO ---
Unit #: [id number] #: [id number] Patient: BRITTNEY VU [id number] [address] [place], [place] [address] [id number] MR#: [id number] NAME: BRITTNEY VU ROOM: [facility] Age: 56 Sex: M Admission Date: 11/13/2016 : 1960 Attending Physician: Joe Munoz M.D. Primary Care Physician: Josh Centeno M.D. Consultation Date: 11/14/2016 CONSULTATION REPORT REASON FOR CONSULTATION Respiratory failure. HISTORY OF PRESENT ILLNESS A 56-year-old gentleman with no diagnosed lung disease, presents with shakiness, confusion, and weakness. Apparently lives alone, walks with a walker according to the ER T-sheet. He is fairly somnolent, he will awake and look at me, but falls back to sleep. He is currently in the ER, bed 21, on noninvasive mask ventilation. According to the H and P dictated, no real evidence of infection, but history is limited. PAST MEDICAL HISTORY Remarkable for diabetes, hypertension, gout, and apparently lumbar radiculopathy. I actually saw the patient in 2013, suspected obstructive sleep apnea and suggested workup but I doubt that he ever pursued the workup. MEDICATIONS AT HOME Formal med rec has not been performed. According to the ER T-sheet, he is on Ditropan, aspirin, and Tylenol. ALLERGIES No known medical allergies. SOCIAL HISTORY He lives alone. Does not smoke. Does not drink. FAMILY HISTORY Unobtainable. REVIEW OF SYSTEMS Unobtainable. PHYSICAL EXAMINATION GENERAL: Reveals morbidly obese gentleman, who is somnolent in the ER on mask ventilation. VITAL SIGNS: He is afebrile, pulse 72, respiratory rate is 26, blood pressure is 135/61. He is 6 feet tall, 481 pounds. BMI is 61. HEENT: Pupils are equal, round, and reactive to light. Sclerae anicteric. Head, atraumatic. NECK: Supple. CHEST: Decreased breath sounds. Again, his exam is limited by his body habitus, I do not appreciate any wheeze, stridor, or consolidation. Unit #: [id number] #: [id number] Patient: BRITTNEY VU CARDIAC: Distant heart tones. No definite murmur, rub, or gallop. ABDOMEN: Obese, soft, and nontender. SKIN: Has diffuse erythema. Lower abdomen appears he has significant fungal infection on his skin folds. Fungal infection on his feet and edema. NEUROLOGIC: Somnolent, did not cooperate with full neurologic exam. No obvious focal motor or sensory deficits noted. DIAGNOSTIC STUDIES IMAGING STUDIES: Chest x-ray is uninterpretable because of body habitus. CT angiogram, no report but again it is very limited by body habitus. I do not see definite pneumonia. Follow up report for angiogram, but I suspect it would be technically difficult. LABORATORY RESULTS: Arterial blood gas; pH is 7.34, pCO2 of 67, PO2 of 67, he is on 4.5 L. His BUN is 13, creatinine is 1.0. BNP 147. TSH 1.8. INR normal. Cardiac enzymes, normal. White blood cell count 12.2, hemoglobin 13, platelet count 271. Urinalysis; 1+ leukocyte esterase, 2 to 5 red cells, 2 to 5 white cells, negative bacteria. Blood cultures performed and are pending. No urine has been sent. He has had wound cultures in the past with multiple organisms including Enterococcus, Proteus, Pseudomonas. Pseudomonas was sensitive to Levaquin. CARDIOVASCULAR STUDIES: EKG; sinus rhythm, no definite acute ST changes. IMPRESSION 1. Acute hypercapnic hypoxemic respiratory failure. 2. Somnolence likely secondary to elevated pCO2, rule out worsening condition. 3. Obstructive sleep apnea and obesity hypoventilation syndrome. 4. Cellulitis and diabetic. 5. Diabetes, hypertension, obesity, gout. PLAN ICU admission, antibiotics for cellulitis and possible urinary tract infection. Doubt pneumonia based on CT scan. Noninvasive mask ventilation. Diuresis for cor pulmonale. Check echocardiogram. Recheck ABGs. The patient may need intubation. Consider CT scan of the head, if ABGs reasonable and suggests stable enough to go to CAT scan. Dictated by... Delio Kaye M.D. JEAN PIERRE/fahad TD: 11/15/2016 04:20 JOB #: [id number] Unit #: [id number] #: [id number] Patient: BRITTNEY VU CONSULTATION REPORT Page 1 of 1 X Delio Kaye MD CONSULTATION REPORT
--- NOTE | ~2016-11-13 | US77 ---
[facility] A Service of [facility] RADIOLOGY TEXT RESULTS PATIENT: BRITTNEY VU LOCATION: [address] : 56 UNIT #: [id number] AGE: [address]: Joe Munoz MD SEX: M ORDER DR: [id number] [facility] [address]. [place], [place] [address] [id number] I MR#: [id number] Acc #: [id number] NAME: BRITTNEY VU : 1960 SEX: M STUDY DATE/TIME: 11/18/2016 16:32 UNIT: [facility] ROOM: [facility] STUDY DESCRIPTION: US Kidney Bilateral Complete Attending Physician: Joe Munoz M.D. Ordering Physician: Karlo Leblanc M.D. Primary Care Physician: Josh Centeno M.D. MEDICAL IMAGING REPORT This report is preliminary unless electronic signature is present EXAM Bilateral renal ultrasound. HISTORY Acute renal insufficiency. Elevated creatinine. FINDINGS Ultrasound examination of both kidneys demonstrates no hydronephrosis. No renal mass is identified but sensitivity is limited by large patient size. No perinephric fluid collection is identified. Survey of the urinary bladder is normal. IMPRESSION 1. No renal mass or hydronephrosis is identified. 2. Exam sensitivity is limited by large patient size. 3. Survey of the urinary bladder is unremarkable. Dictated by... Santo Arora M.D. THIS IS AN ELECTRONICALLY VERIFIED REPORT Santo Arora M.D. at 11/18/2016 10:53 PM THEO/evelyne TD: 11/18/2016 22:40 JOB #: [id number] MEDICAL IMAGING REPORT Page 1 of 1 COPY
--- NOTE | ~2016-11-13 | CR72 ---
[facility] A Service of [facility] RADIOLOGY TEXT RESULTS PATIENT: BRITTNEY VU LOCATION: [address] : 56 UNIT #: [id number] AGE: [address]: Joe Munoz MD SEX: M ORDER DR: [id number] [place] [id number] [facility]. [place], [place] [address] [id number] MR#: [id number] Acc #: [id number] NAME: BRITTNEY VU. : 1960 SEX: M STUDY DATE/TIME: 11/18/2016 5:59 UNIT: [facility] ROOM: [facility] STUDY DESCRIPTION: CR Chest Single View Portable Attending Physician: Joe Munoz M.D. Ordering Physician: Delio Kaye M.D. Primary Care Physician: Josh Centeno M.D. MEDICAL IMAGING REPORT This report is preliminary unless electronic signature is present EXAM Portable AP view of the chest COMPARISON November 17, 2016 and November 16, 2016. HISTORY 56-year-old male with dyspnea for 4 days. Respiratory failure requiring ventilatory support. CHF. FINDINGS/IMPRESSION Right arm PICC tip again noted, terminating upper SVC. Endotracheal tube is grossly stable terminating approximately 3.8 cm above the timothy. ET tube not traced below the level of the stomach where it passes off the bottom aspect of the image. There is a stable [id number] left pleural effusion with stable left basilar opacities. Diffuse right lung opacities are improved, especially in the right lung base. Findings could reflect any combination of pulmonary edema, atelectasis and/or pneumonia. No pneumothorax. Dictated by... Moises Warren M.D. THIS IS AN ELECTRONICALLY VERIFIED REPORT Moises Warren M.D. at 11/23/2016 7:34 PM BLM/pcl TD: 11/18/2016 10:23 JOB #: [id number] MEDICAL IMAGING REPORT [facility] A Service of [facility] RADIOLOGY TEXT RESULTS PATIENT: BRITTNEY VU LOCATION: [facility] CICCU3-23 : 56 UNIT #: [id number] AGE: [address]: Joe Munoz MD SEX: M ORDER DR: Page 1 of 1 COPY
[~2016-11-13 19:36] MED LIST: ASPIRIN81 M2 PO; DITROPAN PO; DITROPAN XL5 M2 PO; EC-NAPROSYN500 MG PO; LISINOPRIL PO; TYLENOL EXTRA500 M1 PO; ZYLOPRIM PO
[2016-11-13 21:00] LABS: BASOPHIL# 0.1 X10e3 (0-0.3); BASOPHIL% 0.5 % (0-2.5); DIFF IND NO; EOSINOPHIL# 0.3 X10e3 (0-0.7); EOSINOPHIL% 2.1 % (0.0-7.0); HEMATOCRIT 45.3 % (38.0-50.0); HEMOGLOBIN 14.1 gm/dL (13.0-16.0); LYMPHOCYTE% 15.4 % (17.0-45.0); MEAN CELL VOLUME 82.6 FL (83-96); MEAN CORPUSCULAR HEMOGLOBIN 25.7 PG (28-34); MEAN CORPUSCULAR HGB CONC 31.2 g/dL (30-36); MEAN PLATELET VOLUME 7.5 FL (6.5-11.5); MONOCYTE# 0.5 X10e3 (0-1.0); MONOCYTE% 3.8 % (3.0-12.0); NEUTROPHIL% 78.2 % (40-75); PLATELET COUNT 284 X10e3 (140-420); RED BLOOD COUNT 5.48 X10e (3.90-5.60); WHITE BLOOD COUNT 12.8 X10e3 (4.0-10.5)
[2016-11-13 21:03] LABS: POC - CKMB <1.0 ng/mL (0.0-7.9); POC - TROPONIN <0.05 ng/mL (<=0.05)
[2016-11-13 21:22] LABS: BILIRUBIN, DIRECT 0.2 mg/dL (0.0-0.2); BILIRUBIN,INDIRECT 0.6 mg/dL (0.0-0.9); BILIRUBIN,TOTAL 0.8 mg/dL (0.2-2.0); BUN/CREATININE RATIO 11.81; CREATININE SERUM 1.1 mg/dL (0.6-1.4); GLOM FILT RATE Estimated 73.6 mL/min (>60); POTASSIUM 4.2 mmol/L (3.5-5.1); PROTEIN TOTAL SERUM 7.4 g/dL (6.0-8.3)
[2016-11-13 23:59] LABS: URINE SOURCE CLEAN CATCH
[2016-11-14 00:06] LABS: URINE APPEARANCE CLOUDY; URINE BILIRUBIN NEG (NEG); URINE BLOOD TRACE (NEG); URINE COLOR YELLOW; URINE GLUCOSE NEG (NEG); URINE KETONE NEG (NEG); URINE LEUKOCYTE ESTERASE 1+ (NEG); URINE NITRATE NEG (NEG); URINE PROTEIN 1+ (NEG)
[2016-11-14 00:12] LABS: URINE BACTERIA AUWI NEG (NEGATIVE); URINE SQUAMOUS EPITHELIAL CELL FEW /[HPF]
[2016-11-14 00:23] LABS: CULTURE INDICATED? NO
[2016-11-14 03:25] LABS: ARTERIAL BLOOD GAS PCO2 67.8 mmHg (35.0-45.0); ARTERIAL BLOOD GAS PO2 66.7 mmHg (80.0-100); ARTERIAL BLOOD GAS pH 7.332 (7.350-7.450)
[2016-11-14 03:26] LABS: ARTERIAL BLD GAS O2 SATURATION 91.2 % (90.0-100.0); ARTERIAL BLOOD GAS ALLEN TEST NORMAL; ARTERIAL BLOOD GAS ART SITE RIGHT RADIAL; ARTERIAL BLOOD GAS CARBOXY HB 2.9 %sat (0.0-9.0); ARTERIAL BLOOD GAS DELIVERY NASAL CANNULA; ARTERIAL BLOOD GAS HCO3 35.9 mmol/L; ARTERIAL BLOOD GAS LITER FLOW 4.5; ARTERIAL BLOOD GAS MET HB 0.8 %sat (0.0-2.0); ARTERIAL DRAW? YES
[2016-11-14 04:31] LABS: BASOPHIL# 0.1 X10e3 (0-0.3); BASOPHIL% 0.4 % (0-2.5); DIFF IND NO; EOSINOPHIL# 0.4 X10e3 (0-0.7); EOSINOPHIL% 2.9 % (0.0-7.0); HEMATOCRIT 41.9 % (38.0-50.0); LYMPHOCYTE# 1.8 X10e3 (1.0-3.5); LYMPHOCYTE% 14.4 % (17.0-45.0); MEAN CELL VOLUME 82.4 FL (83-96); MEAN CORPUSCULAR HEMOGLOBIN 25.6 PG (28-34); MEAN PLATELET VOLUME 7.4 FL (6.5-11.5); MONOCYTE# 0.6 X10e3 (0-1.0); MONOCYTE% 4.6 % (3.0-12.0); NEUTROPHIL# 9.5 X10e3 (1.5-7.1); NEUTROPHIL% 77.7 % (40-75); PLATELET COUNT 271 X10e3 (140-420); RED BLOOD COUNT 5.09 X10e (3.90-5.60); RED CELL DISTRIBUTION WIDTH 15.8 % (11.0-15.5); WHITE BLOOD COUNT 12.2 X10e3 (4.0-10.5)
[2016-11-14 04:50] LABS: CALCIUM SERUM 7.7 mg/dL (8.4-10.2); GLOM FILT RATE Estimated 82.6 mL/min (>60); POTASSIUM 4.3 mmol/L (3.5-5.1)
[2016-11-14 09:10] LABS: ARTERIAL BLOOD GAS pH 7.223 (7.350-7.450)
[2016-11-14 09:13] LABS: ARTERIAL BLD GAS O2 SATURATION 99.5 % (90.0-100.0); ARTERIAL BLOOD GAS HCO3 36.5 mmol/L; ARTERIAL BLOOD GAS PCO2 88.7 mmHg (35.0-45.0)
[2016-11-14 09:14] LABS: ARTERIAL BLOOD GAS ALLEN TEST NORMAL; ARTERIAL BLOOD GAS ART SITE RIGHT RADIAL; ARTERIAL BLOOD GAS CARBOXY HB 1.7 %sat (0.0-9.0); ARTERIAL BLOOD GAS DELIVERY BIPAP; ARTERIAL BLOOD GAS MET HB 0.6 %sat (0.0-2.0); ARTERIAL DRAW? YES
[2016-11-14] MEDS ORDERED: FORTAMET500 MG PO (11:21)
[2016-11-14] MEDS ORDERED: LASIX PO (11:21)
[2016-11-14] MEDS ORDERED: COZAAR PO (11:21)
[2016-11-14] MEDS ORDERED: DITROPAN5 MG PO (11:22)
[2016-11-14] MEDS ORDERED: PATIENT'S PHARMACY (11:22)
[2016-11-14 13:27] LABS: ARTERIAL BLD GAS O2 SATURATION 99.4 % (90.0-100.0); ARTERIAL BLOOD GAS ALLEN TEST N; ARTERIAL BLOOD GAS ART SITE RIGHT RADIAL; ARTERIAL BLOOD GAS CARBOXY HB 1.5 %sat (0.0-9.0); ARTERIAL BLOOD GAS DELIVERY VENT; ARTERIAL BLOOD GAS HCO3 36.7 mmol/L; ARTERIAL BLOOD GAS MET HB 0.6 %sat (0.0-2.0); ARTERIAL BLOOD GAS PCO2 66.2 mmHg (35.0-45.0); ARTERIAL BLOOD GAS VENT MODE AC; ARTERIAL BLOOD GAS pH 7.352 (7.350-7.450); ARTERIAL DRAW? YES
[2016-11-15 04:06] LABS: ARTERIAL BLOOD GAS PCO2 53.5 mmHg (35.0-45.0)
[2016-11-15 04:07] LABS: ARTERIAL BLOOD GAS ALLEN TEST NORMAL; ARTERIAL BLOOD GAS ART SITE LEFT RADIAL; ARTERIAL BLOOD GAS CARBOXY HB 1.5 %sat (0.0-9.0); ARTERIAL BLOOD GAS DELIVERY VENT; ARTERIAL BLOOD GAS HCO3 36.3 mmol/L; ARTERIAL BLOOD GAS MET HB 0.6 %sat (0.0-2.0); ARTERIAL BLOOD GAS PO2 71.6 mmHg (80.0-100); ARTERIAL BLOOD GAS VENT MODE AC; ARTERIAL DRAW? YES
[2016-11-15 04:49] LABS: BASOPHIL% 0.3 % (0-2.5); DIFF IND NO; EOSINOPHIL# 0.3 X10e3 (0-0.7); EOSINOPHIL% 2.3 % (0.0-7.0); HEMATOCRIT 41.3 % (38.0-50.0); HEMOGLOBIN 12.8 gm/dL (13.0-16.0); LYMPHOCYTE# 1.5 X10e3 (1.0-3.5); MEAN CELL VOLUME 82.5 FL (83-96); MEAN CORPUSCULAR HEMOGLOBIN 25.6 PG (28-34); MEAN CORPUSCULAR HGB CONC 31.1 g/dL (30-36); MEAN PLATELET VOLUME 7.7 FL (6.5-11.5); MONOCYTE# 0.5 X10e3 (0-1.0); MONOCYTE% 4.3 % (3.0-12.0); NEUTROPHIL% 80.1 % (40-75); PLATELET COUNT 244 X10e3 (140-420); RED CELL DISTRIBUTION WIDTH 16.2 % (11.0-15.5); WHITE BLOOD COUNT 11.3 X10e3 (4.0-10.5)
[2016-11-15 05:03] LABS: CALCIUM SERUM 7.8 mg/dL (8.4-10.2); GLOM FILT RATE Estimated 82.6 mL/min (>60); POTASSIUM 4.1 mmol/L (3.5-5.1)
[2016-11-16 05:32] LABS: BASOPHIL% 0.2 % (0-2.5); EOSINOPHIL# 0.2 X10e3 (0-0.7); EOSINOPHIL% 1.7 % (0.0-7.0); HEMATOCRIT 39.8 % (38.0-50.0); HEMOGLOBIN 12.3 gm/dL (13.0-16.0); LYMPHOCYTE# 1.6 X10e3 (1.0-3.5); LYMPHOCYTE% 14.9 % (17.0-45.0); MEAN CELL VOLUME 82.4 FL (83-96); MEAN CORPUSCULAR HEMOGLOBIN 25.4 PG (28-34); MEAN CORPUSCULAR HGB CONC 30.9 g/dL (30-36); MEAN PLATELET VOLUME 7.8 FL (6.5-11.5); MONOCYTE# 0.4 X10e3 (0-1.0); MONOCYTE% 4.2 % (3.0-12.0); NEUTROPHIL# 8.4 X10e3 (1.5-7.1); PLATELET COUNT 244 X10e3 (140-420); RED BLOOD COUNT 4.83 X10e (3.90-5.60); WHITE BLOOD COUNT 10.6 X10e3 (4.0-10.5)
[2016-11-16 05:38] LABS: DIFF IND NO
[2016-11-16 06:43] LABS: BUN/CREATININE RATIO 10.55; CALCIUM SERUM 7.6 mg/dL (8.4-10.2); CREATININE SERUM 1.8 mg/dL (0.6-1.4); GLOM FILT RATE Estimated 40.6 mL/min (>60); MAGNESIUM 1.9 mg/dL (1.6-3.0); PHOSPHOROUS 5.2 mg/dL (2.5-4.6); POTASSIUM 3.9 mmol/L (3.5-5.1)
[2016-11-16 08:15] LABS: ARTERIAL BLD GAS O2 SATURATION 96.9 % (90.0-100.0); ARTERIAL BLOOD GAS HCO3 35.8 mmol/L; ARTERIAL BLOOD GAS PO2 93.1 mmHg (80.0-100); ARTERIAL BLOOD GAS pH 7.356 (7.350-7.450)
[2016-11-16 08:16] LABS: ARTERIAL BLOOD GAS ART SITE LEFT RADIAL; ARTERIAL BLOOD GAS CARBOXY HB 1.3 %sat (0.0-9.0); ARTERIAL BLOOD GAS DELIVERY VENT; ARTERIAL BLOOD GAS MET HB 0.8 %sat (0.0-2.0); ARTERIAL BLOOD GAS VENT MODE CPAP; ARTERIAL DRAW? YES
[2016-11-17 03:55] LABS: BASOPHIL% 0.3 % (0-2.5); EOSINOPHIL# 0.3 X10e3 (0-0.7); EOSINOPHIL% 3.6 % (0.0-7.0); HEMATOCRIT 38.6 % (38.0-50.0); LYMPHOCYTE# 1.4 X10e3 (1.0-3.5); LYMPHOCYTE% 14.8 % (17.0-45.0); MEAN CELL VOLUME 82.1 FL (83-96); MEAN CORPUSCULAR HEMOGLOBIN 25.5 PG (28-34); MEAN CORPUSCULAR HGB CONC 31.1 g/dL (30-36); MEAN PLATELET VOLUME 7.5 FL (6.5-11.5); MONOCYTE# 0.5 X10e3 (0-1.0); NEUTROPHIL# 7.1 X10e3 (1.5-7.1); NEUTROPHIL% 76.3 % (40-75); PLATELET COUNT 226 X10e3 (140-420); RED CELL DISTRIBUTION WIDTH 16.6 % (11.0-15.5); WHITE BLOOD COUNT 9.4 X10e3 (4.0-10.5)
[2016-11-17 03:56] LABS: DIFF IND NO
[2016-11-17 04:29] LABS: ALBUMIN SERUM 2.3 g/dL (3.5-5.0); BUN/CREATININE RATIO 16.47; CALCIUM SERUM 7.3 mg/dL (8.4-10.2); CREATININE SERUM 1.7 mg/dL (0.6-1.4); GLOM FILT RATE Estimated 43.5 mL/min (>60); PROTEIN TOTAL SERUM 6.2 g/dL (6.0-8.3)
[2016-11-17 08:17] LABS: ARTERIAL BLD GAS O2 SATURATION 97.5 % (90.0-100.0); ARTERIAL BLOOD GAS ALLEN TEST N; ARTERIAL BLOOD GAS ART SITE LEFT RADIAL; ARTERIAL BLOOD GAS CARBOXY HB 1.1 %sat (0.0-9.0); ARTERIAL BLOOD GAS DELIVERY VENT; ARTERIAL BLOOD GAS HCO3 35.3 mmol/L; ARTERIAL BLOOD GAS MET HB 0.6 %sat (0.0-2.0); ARTERIAL BLOOD GAS PCO2 65.5 mmHg (35.0-45.0); ARTERIAL BLOOD GAS VENT MODE CPAP; ARTERIAL DRAW? YES
[2016-11-18 07:49] LABS: BASOPHIL% 0.2 % (0-2.5); EOSINOPHIL# 0.6 X10e3 (0-0.7); EOSINOPHIL% 5.6 % (0.0-7.0); HEMATOCRIT 40.1 % (38.0-50.0); HEMOGLOBIN 12.2 gm/dL (13.0-16.0); LYMPHOCYTE# 1.4 X10e3 (1.0-3.5); LYMPHOCYTE% 13.8 % (17.0-45.0); MEAN CELL VOLUME 82.8 FL (83-96); MEAN CORPUSCULAR HEMOGLOBIN 25.3 PG (28-34); MEAN CORPUSCULAR HGB CONC 30.5 g/dL (30-36); MEAN PLATELET VOLUME 7.5 FL (6.5-11.5); MONOCYTE# 0.5 X10e3 (0-1.0); NEUTROPHIL# 7.5 X10e3 (1.5-7.1); NEUTROPHIL% 75.4 % (40-75); PLATELET COUNT 226 X10e3 (140-420); RED BLOOD COUNT 4.84 X10e (3.90-5.60); RED CELL DISTRIBUTION WIDTH 16.6 % (11.0-15.5)
[2016-11-18 07:51] LABS: DIFF IND NO
[2016-11-18 08:05] LABS: ARTERIAL BLOOD GAS pH 7.334 (7.350-7.450)
[2016-11-18 08:06] LABS: ARTERIAL BLD GAS O2 SATURATION 97.6 % (90.0-100.0); ARTERIAL BLOOD GAS CARBOXY HB 1.2 %sat (0.0-9.0); ARTERIAL BLOOD GAS HCO3 34.5 mmol/L; ARTERIAL BLOOD GAS MET HB 0.1 %sat (0.0-2.0); ARTERIAL BLOOD GAS PCO2 64.9 mmHg (35.0-45.0)
[2016-11-18 08:07] LABS: ARTERIAL BLOOD GAS ALLEN TEST NORMAL; ARTERIAL BLOOD GAS ART SITE LEFT RADIAL; ARTERIAL BLOOD GAS DELIVERY VENT; ARTERIAL BLOOD GAS VENT MODE A/C; ARTERIAL DRAW? YES
[2016-11-18 08:18] LABS: CALCIUM SERUM 7.6 mg/dL (8.4-10.2); CREATININE SERUM 1.6 mg/dL (0.6-1.4); GLOM FILT RATE Estimated 46.8 mL/min (>60); POTASSIUM 4.1 mmol/L (3.5-5.1)
[2016-11-18 19:25] LABS: URINE APPEARANCE CLOUDY; URINE BILIRUBIN NEG (NEG); URINE BLOOD 4+ (NEG); URINE COLOR BROWN; URINE GLUCOSE NORM (NORM); URINE KETONE NEG (NEG); URINE LEUKOCYTE ESTERASE 2+ (NEG); URINE NITRATE POS (NEG); URINE PROTEIN 1+ (NEG); URINE UROBILINOGEN NORM (NORM)
[2016-11-18 19:31] LABS: URBCS1 AUWI INNUM /[HPF] (0-2); URINE BACTERIA AUWI 2+ (NEGATIVE); URINE GRANULAR CAST 0-2 /[HPF]; URINE SQUAMOUS EPITHELIAL CELL OCCAS /[HPF]
[2016-11-19 04:05] LABS: ARTERIAL BLD GAS O2 SATURATION 98.1 % (90.0-100.0); ARTERIAL BLOOD GAS ALLEN TEST NORMAL; ARTERIAL BLOOD GAS ART SITE RIGHT RADIAL; ARTERIAL BLOOD GAS CARBOXY HB 1.3 %sat (0.0-9.0); ARTERIAL BLOOD GAS MET HB 0.7 %sat (0.0-2.0); ARTERIAL BLOOD GAS PCO2 47.1 mmHg (35.0-45.0); ARTERIAL BLOOD GAS PO2 93.3 mmHg (80.0-100); ARTERIAL BLOOD GAS pH 7.427 (7.350-7.450); ARTERIAL DRAW? YES
[2016-11-19 04:06] LABS: ARTERIAL BLOOD GAS DELIVERY VENT; ARTERIAL BLOOD GAS VENT MODE AC
[2016-11-19 04:53] LABS: ALBUMIN SERUM 2.6 g/dL (3.5-5.0); BILIRUBIN,TOTAL 0.9 mg/dL (0.2-2.0); BUN/CREATININE RATIO 22.5; CALCIUM SERUM 7.5 mg/dL (8.4-10.2); GLOM FILT RATE Estimated 35.7 mL/min (>60); PHOSPHOROUS 6.1 mg/dL (2.5-4.6); POTASSIUM 4.2 mmol/L (3.5-5.1); PROTEIN TOTAL SERUM 6.8 g/dL (6.0-8.3)
[2016-11-20 05:53] LABS: BASOPHIL% 0.2 % (0-2.5); EOSINOPHIL# 0.6 X10e3 (0-0.7); EOSINOPHIL% 6.9 % (0.0-7.0); HEMATOCRIT 38.4 % (38.0-50.0); HEMOGLOBIN 11.8 gm/dL (13.0-16.0); LYMPHOCYTE# 1.1 X10e3 (1.0-3.5); LYMPHOCYTE% 13.6 % (17.0-45.0); MEAN CELL VOLUME 82.3 FL (83-96); MEAN CORPUSCULAR HEMOGLOBIN 25.3 PG (28-34); MEAN CORPUSCULAR HGB CONC 30.7 g/dL (30-36); MEAN PLATELET VOLUME 7.8 FL (6.5-11.5); MONOCYTE# 0.3 X10e3 (0-1.0); MONOCYTE% 4.2 % (3.0-12.0); NEUTROPHIL% 75.1 % (40-75); PLATELET COUNT 224 X10e3 (140-420); RED BLOOD COUNT 4.66 X10e (3.90-5.60); RED CELL DISTRIBUTION WIDTH 16.2 % (11.0-15.5)
[2016-11-20 06:27] LABS: ALBUMIN SERUM 2.3 g/dL (3.5-5.0); BILIRUBIN,TOTAL 0.8 mg/dL (0.2-2.0); CALCIUM SERUM 7.8 mg/dL (8.4-10.2); CREATININE SERUM 2.6 mg/dL (0.6-1.4); DIFF IND NO; MAGNESIUM 1.9 mg/dL (1.6-3.0); POTASSIUM 3.9 mmol/L (3.5-5.1); PROTEIN TOTAL SERUM 6.6 g/dL (6.0-8.3)
[2016-11-21 05:35] LABS: BASOPHIL% 0.4 % (0-2.5); EOSINOPHIL% 0.1 % (0.0-7.0); HEMATOCRIT 41.3 % (38.0-50.0); HEMOGLOBIN 12.8 gm/dL (13.0-16.0); LYMPHOCYTE# 0.5 X10e3 (1.0-3.5); LYMPHOCYTE% 7.2 % (17.0-45.0); MEAN CELL VOLUME 82.1 FL (83-96); MEAN CORPUSCULAR HEMOGLOBIN 25.5 PG (28-34); MONOCYTE# 0.2 X10e3 (0-1.0); MONOCYTE% 2.5 % (3.0-12.0); NEUTROPHIL# 6.7 X10e3 (1.5-7.1); NEUTROPHIL% 89.8 % (40-75); PLATELET COUNT 244 X10e3 (140-420); RED BLOOD COUNT 5.02 X10e (3.90-5.60); RED CELL DISTRIBUTION WIDTH 16.3 % (11.0-15.5); WHITE BLOOD COUNT 7.4 X10e3 (4.0-10.5)
[2016-11-21 05:59] LABS: DIFF IND NO
[2016-11-21 06:13] LABS: BUN/CREATININE RATIO 28.26; CREATININE SERUM 2.3 mg/dL (0.6-1.4); GLOM FILT RATE Estimated 30.2 mL/min (>60); POTASSIUM 4.4 mmol/L (3.5-5.1)
[2016-11-21 06:29] LABS: PHOSPHOROUS 8.1 mg/dL (2.5-4.6)
[2016-11-21 08:26] LABS: ARTERIAL BLD GAS O2 SATURATION 93.3 % (90.0-100.0); ARTERIAL BLOOD GAS CARBOXY HB 0.9 %sat (0.0-9.0); ARTERIAL BLOOD GAS MET HB 0.6 %sat (0.0-2.0); ARTERIAL BLOOD GAS PCO2 66.4 mmHg (35.0-45.0); ARTERIAL BLOOD GAS PO2 74.1 mmHg (80.0-100); ARTERIAL BLOOD GAS pH 7.318 (7.350-7.450)
[2016-11-21 08:27] LABS: ARTERIAL BLOOD GAS ALLEN TEST NORMAL; ARTERIAL BLOOD GAS ART SITE LEFT RADIAL; ARTERIAL BLOOD GAS DELIVERY VENT; ARTERIAL BLOOD GAS VENT MODE CPAP; ARTERIAL DRAW? YES
[2016-11-22 03:10] LABS: BASOPHIL% 0.3 % (0-2.5); EOSINOPHIL% 0.3 % (0.0-7.0); HEMATOCRIT 40.1 % (38.0-50.0); HEMOGLOBIN 12.5 gm/dL (13.0-16.0); MEAN CELL VOLUME 82.1 FL (83-96); MEAN CORPUSCULAR HEMOGLOBIN 25.6 PG (28-34); MEAN CORPUSCULAR HGB CONC 31.2 g/dL (30-36); MEAN PLATELET VOLUME 7.5 FL (6.5-11.5); MONOCYTE# 0.4 X10e3 (0-1.0); MONOCYTE% 5.8 % (3.0-12.0); NEUTROPHIL% 80.6 % (40-75); PLATELET COUNT 264 X10e3 (140-420); RED BLOOD COUNT 4.88 X10e (3.90-5.60); RED CELL DISTRIBUTION WIDTH 16.6 % (11.0-15.5); WHITE BLOOD COUNT 7.5 X10e3 (4.0-10.5)
[2016-11-22 03:11] LABS: DIFF IND NO
[2016-11-22 03:30] LABS: BUN/CREATININE RATIO 41.66; CALCIUM SERUM 7.5 mg/dL (8.4-10.2); CREATININE SERUM 1.8 mg/dL (0.6-1.4); GLOM FILT RATE Estimated 40.6 mL/min (>60); MAGNESIUM 2.1 mg/dL (1.6-3.0); POTASSIUM 3.6 mmol/L (3.5-5.1)
[2016-11-22 07:57] LABS: ARTERIAL BLOOD GAS PCO2 67.8 mmHg (35.0-45.0); ARTERIAL BLOOD GAS PO2 89.2 mmHg (80.0-100)
[2016-11-22 07:58] LABS: ARTERIAL BLD GAS O2 SATURATION 96.8 % (90.0-100.0); ARTERIAL BLOOD GAS ALLEN TEST NORMAL; ARTERIAL BLOOD GAS ART SITE RIGHT RADIAL; ARTERIAL BLOOD GAS CARBOXY HB 0.9 %sat (0.0-9.0); ARTERIAL BLOOD GAS DELIVERY VENT; ARTERIAL BLOOD GAS HCO3 37.4 mmol/L; ARTERIAL BLOOD GAS MET HB 0.4 %sat (0.0-2.0); ARTERIAL BLOOD GAS VENT MODE CPAP; ARTERIAL DRAW? YES
[2016-11-22 10:55] LABS: ARTERIAL BLOOD GAS pH 7.315 (7.350-7.450)
[2016-11-22 10:57] LABS: ARTERIAL BLD GAS O2 SATURATION 90.6 % (90.0-100.0); ARTERIAL BLOOD GAS ALLEN TEST NORMAL; ARTERIAL BLOOD GAS ART SITE RIGHT RADIAL; ARTERIAL BLOOD GAS DELIVERY NASAL CANNULA; ARTERIAL BLOOD GAS HCO3 38.7 mmol/L; ARTERIAL BLOOD GAS MET HB 0.6 %sat (0.0-2.0); ARTERIAL BLOOD GAS PCO2 75.9 mmHg (35.0-45.0); ARTERIAL BLOOD GAS PO2 64.2 mmHg (80.0-100); ARTERIAL DRAW? YES
[2016-11-22 12:39] LABS: ARTERIAL BLOOD GAS pH 7.302 (7.350-7.450)
[2016-11-22 12:40] LABS: ARTERIAL BLD GAS O2 SATURATION 91.2 % (90.0-100.0); ARTERIAL BLOOD GAS PO2 84.5 mmHg (80.0-100)
[2016-11-22 12:41] LABS: ARTERIAL BLOOD GAS ALLEN TEST NORMAL; ARTERIAL BLOOD GAS ART SITE RIGHT RADIAL; ARTERIAL BLOOD GAS DELIVERY BIPAP; ARTERIAL BLOOD GAS MET HB 0.6 %sat (0.0-2.0); ARTERIAL DRAW? YES
[2016-11-22 14:29] LABS: ARTERIAL BLD GAS O2 SATURATION 98.1 % (90.0-100.0); ARTERIAL BLOOD GAS ALLEN TEST NORMAL; ARTERIAL BLOOD GAS ART SITE RIGHT RADIAL; ARTERIAL BLOOD GAS CARBOXY HB 0.8 %sat (0.0-9.0); ARTERIAL BLOOD GAS DELIVERY BIPAP; ARTERIAL BLOOD GAS MET HB 0.5 %sat (0.0-2.0); ARTERIAL BLOOD GAS PCO2 75.8 mmHg (35.0-45.0); ARTERIAL DRAW? YES
[2016-11-22 17:02] LABS: COMPLEMENT C3 142 mg/dL (90-180); COMPLEMENT C4 24 mg/dL (16-47)
[2016-11-23 04:17] LABS: ARTERIAL BLOOD GAS pH 7.318 (7.350-7.450)
[2016-11-23 04:22] LABS: ARTERIAL BLD GAS O2 SATURATION 98.6 % (90.0-100.0); ARTERIAL BLOOD GAS ALLEN TEST NORMAL; ARTERIAL BLOOD GAS ART SITE LEFT RADIAL; ARTERIAL BLOOD GAS CARBOXY HB 0.9 %sat (0.0-9.0); ARTERIAL BLOOD GAS DELIVERY BIPAP 16/8; ARTERIAL BLOOD GAS HCO3 39.9 mmol/L; ARTERIAL BLOOD GAS MET HB 0.9 %sat (0.0-2.0); ARTERIAL BLOOD GAS PCO2 77.7 mmHg (35.0-45.0); ARTERIAL DRAW? YES
[2016-11-23 05:31] LABS: BASOPHIL% 0.1 % (0-2.5); EOSINOPHIL# 0.1 X10e3 (0-0.7); EOSINOPHIL% 1.2 % (0.0-7.0); HEMATOCRIT 40.5 % (38.0-50.0); HEMOGLOBIN 12.6 gm/dL (13.0-16.0); LYMPHOCYTE# 1.1 X10e3 (1.0-3.5); LYMPHOCYTE% 13.4 % (17.0-45.0); MEAN CELL VOLUME 82.6 FL (83-96); MEAN CORPUSCULAR HEMOGLOBIN 25.7 PG (28-34); MEAN CORPUSCULAR HGB CONC 31.2 g/dL (30-36); MEAN PLATELET VOLUME 7.3 FL (6.5-11.5); MONOCYTE# 0.4 X10e3 (0-1.0); MONOCYTE% 4.9 % (3.0-12.0); NEUTROPHIL# 6.3 X10e3 (1.5-7.1); NEUTROPHIL% 80.4 % (40-75); PLATELET COUNT 264 X10e3 (140-420); RED CELL DISTRIBUTION WIDTH 16.1 % (11.0-15.5); WHITE BLOOD COUNT 7.9 X10e3 (4.0-10.5)
[2016-11-23 05:35] LABS: DIFF IND NO
[2016-11-23 06:43] LABS: ALBUMIN SERUM 2.7 g/dL (3.5-5.0); BUN/CREATININE RATIO 47.14; CREATININE SERUM 1.4 mg/dL (0.6-1.4); POTASSIUM 3.5 mmol/L (3.5-5.1); PROTEIN TOTAL SERUM 7.2 g/dL (6.0-8.3)
[2016-11-23 14:28] LABS: ANA SCREEN Negative (Negative); MYELOPEROXIDASE AB (PNL) <1.0 AI (<1.0); PROTEINASE-3 AB (PNL) <1.0 AI (<1.0)
[2016-11-24 05:53] LABS: BASOPHIL% 0.2 % (0-2.5); EOSINOPHIL# 0.2 X10e3 (0-0.7); HEMATOCRIT 40.6 % (38.0-50.0); HEMOGLOBIN 12.4 gm/dL (13.0-16.0); LYMPHOCYTE# 1.5 X10e3 (1.0-3.5); MEAN CELL VOLUME 84.1 FL (83-96); MEAN CORPUSCULAR HEMOGLOBIN 25.6 PG (28-34); MEAN CORPUSCULAR HGB CONC 30.5 g/dL (30-36); MEAN PLATELET VOLUME 7.6 FL (6.5-11.5); MONOCYTE# 0.5 X10e3 (0-1.0); MONOCYTE% 5.7 % (3.0-12.0); NEUTROPHIL# 6.1 X10e3 (1.5-7.1); NEUTROPHIL% 74.1 % (40-75); PLATELET COUNT 292 X10e3 (140-420); RED BLOOD COUNT 4.83 X10e (3.90-5.60); RED CELL DISTRIBUTION WIDTH 16.3 % (11.0-15.5); WHITE BLOOD COUNT 8.3 X10e3 (4.0-10.5)
[2016-11-24 05:57] LABS: DIFF IND NO
[2016-11-24 06:43] LABS: ALBUMIN SERUM 2.8 g/dL (3.5-5.0); BUN/CREATININE RATIO 42.14; CALCIUM SERUM 8.2 mg/dL (8.4-10.2); CREATININE SERUM 1.4 mg/dL (0.6-1.4); MAGNESIUM 2.1 mg/dL (1.6-3.0); PHOSPHOROUS 3.7 mg/dL (2.5-4.6); POTASSIUM 3.9 mmol/L (3.5-5.1); PROTEIN TOTAL SERUM 7.4 g/dL (6.0-8.3)
[2016-11-24 08:12] LABS: ARTERIAL BLD GAS O2 SATURATION 96.8 % (90.0-100.0); ARTERIAL BLOOD GAS CARBOXY HB 1.2 %sat (0.0-9.0); ARTERIAL BLOOD GAS MET HB 0.9 %sat (0.0-2.0); ARTERIAL BLOOD GAS PO2 93.9 mmHg (80.0-100); ARTERIAL BLOOD GAS pH 7.395 (7.350-7.450)
[2016-11-24 08:13] LABS: ARTERIAL BLOOD GAS ALLEN TEST NORMAL; ARTERIAL BLOOD GAS ART SITE RIGHT RADIAL; ARTERIAL BLOOD GAS PCO2 65.5 mmHg (35.0-45.0); ARTERIAL DRAW? YES
[2016-11-24 08:14] LABS: ARTERIAL BLOOD GAS DELIVERY OXYMIZER
[2016-11-25 07:06] LABS: BUN/CREATININE RATIO 42.72; CALCIUM SERUM 8.2 mg/dL (8.4-10.2); CREATININE SERUM 1.1 mg/dL (0.6-1.4); GLOM FILT RATE Estimated 73.6 mL/min (>60); PHOSPHOROUS 3.4 mg/dL (2.5-4.6); POTASSIUM 3.6 mmol/L (3.5-5.1)
[2016-11-25 17:03] LABS: ARTERIAL BLD GAS O2 SATURATION 95.6 % (90.0-100.0); ARTERIAL BLOOD GAS CARBOXY HB 1.3 %sat (0.0-9.0); ARTERIAL BLOOD GAS HCO3 41.1 mmol/L; ARTERIAL BLOOD GAS MET HB 0.5 %sat (0.0-2.0); ARTERIAL BLOOD GAS PO2 98.9 mmHg (80.0-100); ARTERIAL BLOOD GAS pH 7.313 (7.350-7.450)
[2016-11-25 17:21] LABS: ARTERIAL BLOOD GAS ALLEN TEST NORMAL; ARTERIAL BLOOD GAS ART SITE RIGHT RADIAL; ARTERIAL BLOOD GAS DELIVERY OXIMIZER; ARTERIAL BLOOD GAS PCO2 81.2 mmHg (35.0-45.0); ARTERIAL DRAW? YES
[2016-11-26 06:27] LABS: HEMATOCRIT 38.7 % (38.0-50.0); MEAN CELL VOLUME 83.3 FL (83-96); MEAN CORPUSCULAR HEMOGLOBIN 25.7 PG (28-34); MEAN CORPUSCULAR HGB CONC 30.9 g/dL (30-36); MEAN PLATELET VOLUME 7.7 FL (6.5-11.5); RED BLOOD COUNT 4.65 X10e (3.90-5.60); RED CELL DISTRIBUTION WIDTH 16.1 % (11.0-15.5); WHITE BLOOD COUNT 8.4 X10e3 (4.0-10.5)
[2016-11-26 06:56] LABS: BUN/CREATININE RATIO 33.63; CALCIUM SERUM 8.9 mg/dL (8.4-10.2); CREATININE SERUM 1.1 mg/dL (0.6-1.4); GLOM FILT RATE Estimated 73.6 mL/min (>60); POTASSIUM 3.6 mmol/L (3.5-5.1)
[2016-11-27 07:36] LABS: CALCIUM SERUM 8.3 mg/dL (8.4-10.2); GLOM FILT RATE Estimated 82.6 mL/min (>60); POTASSIUM 3.5 mmol/L (3.5-5.1)
[2016-11-28 05:46] LABS: HEMATOCRIT 39.1 % (38.0-50.0); HEMOGLOBIN 11.8 gm/dL (13.0-16.0); MEAN CELL VOLUME 83.9 FL (83-96); MEAN CORPUSCULAR HEMOGLOBIN 25.2 PG (28-34); MEAN CORPUSCULAR HGB CONC 30.1 g/dL (30-36); MEAN PLATELET VOLUME 7.7 FL (6.5-11.5); RED BLOOD COUNT 4.66 X10e (3.90-5.60); RED CELL DISTRIBUTION WIDTH 15.9 % (11.0-15.5); WHITE BLOOD COUNT 15.2 X10e3 (4.0-10.5)
[2016-11-28 06:11] LABS: BUN/CREATININE RATIO 17.5; CALCIUM SERUM 8.2 mg/dL (8.4-10.2); CREATININE SERUM 1.6 mg/dL (0.6-1.4); GLOM FILT RATE Estimated 46.8 mL/min (>60); POTASSIUM 3.5 mmol/L (3.5-5.1)
== END 2016-11-28 19:58 | DRG 207 ==
LOC: CED 19:36 → CEDOF 11-14 03:00 → CICCU3 11-14 03:00 → CEDOF 11-14 03:22 → CED 11-14 03:22 → CEDOF 11-14 08:02 → CICCU3 11-14 12:00 → CEDOF 11-14 12:00 → CICCU3 11-14 12:00 → C5C 11-24 13:00
PROVIDERS: Emergency Medicine; Family Medicine; Internal Medicine; Internal Medicine Endocrinology, Diabetes & Metabolism; Internal Medicine Nephrology
PROC: 5A1955Z Respiratory Ventilation, Greater than 96 Consecutive Hours (ICD-10-PCS; principal; 2016-11-14)
PROC: 0BH17EZ Insertion of Endotracheal Airway into Trachea, Via Natural or Artificial Opening (ICD-10-PCS; 2016-11-14)
PROC: B246YZZ Ultrasonography of Right and Left Heart using Other Contrast (ICD-10-PCS; 2016-11-14)
PROC: 02HV33Z Insertion of Infusion Device into Superior Vena Cava, Percutaneous Approach (ICD-10-PCS; 2016-11-14)
PROC: 0BC78ZZ Extirpation of Matter from Left Main Bronchus, Via Natural or Artificial Opening Endoscopic (ICD-10-PCS; 2016-11-14)
PROC: 0BC38ZZ Extirpation of Matter from Right Main Bronchus, Via Natural or Artificial Opening Endoscopic (ICD-10-PCS; 2016-11-14)
PROC: 0BB78ZX Excision of Left Main Bronchus, Via Natural or Artificial Opening Endoscopic, Diagnostic (ICD-10-PCS; 2016-11-14)
PROC: 0BB38ZX Excision of Right Main Bronchus, Via Natural or Artificial Opening Endoscopic, Diagnostic (ICD-10-PCS; 2016-11-14)
DX: J96.21 Acute and chronic respiratory failure with hypoxia (principal); N17.0 Acute kidney failure with tubular necrosis; E66.2 Morbid (severe) obesity with alveolar hypoventilation; Z68.44 Body mass index [BMI] 60.0-69.9, adult; E87.2 Acidosis; E44.1 Mild protein-calorie malnutrition; T17.990A Other foreign object in respiratory tract, part unspecified in causing asphyxiation, initial encounter; I10 Essential (primary) hypertension; Z87.442 Personal history of urinary calculi; Z98.41 Cataract extraction status, right eye; Z79.84 Long term (current) use of oral hypoglycemic drugs; N32.81 Overactive bladder; J96.22 Acute and chronic respiratory failure with hypercapnia; E11.65 Type 2 diabetes mellitus with hyperglycemia; M62.3 Immobility syndrome (paraplegic)
CPT/HCPCS: 36415; 36600; 71010; 71275; 74000; 76770; 80048; 80053; 80076; 80202; 81003; 82308; 82550; 82553; 82570; 82803; 82947; 83520; 83735; 83880; 84100; 84156; 84300; 84443; 84484; 85025; 85027; 85610; 86021; 86038; 86039; 86160; 86334; 87040; 87070; 87077; 87086; 87102; 87106; 87116; 87186; 87205; 87206; 87449; 87493; 87899; 88108; 88305; 89190; 92526; 92610; 93005; 94002; 94003; 94640; 94660; 94760; 94761; 97110; 97161; 97167; 97530; 97535; 99285; C8929; C9113; G8978-GP; G8979-GP; G8987-GO; G8988-GO; G8996-GN; G8997-GN; G8998-GN; J0171; J0330; J0456; J0696; J1650; J1815; J1940; J1956; J2250; J2920; J3010; J3370; Q9957; Q9967